=== PATIENT | male | born 1930 | race Caucasian/White ===

== ENCOUNTER 2017-09-14 17:12 | Inpatient (IN) | payer OTHER ==
[~2017-09-14] VITALS: Ht 172.7 cm; Wt 85.7 kg
[~2017-09-14 17:12] MED LIST: APR10 PO; COL100 PO; ECO81 PO; FERL PO; GABAPENTIN100 M2 PO; IPRATROPIUM BROM3 M2 HHN; LAC PO; LEVAQUIN250 MG PO; LIPI10 PO; NOR10 PO; TENORMIN50 MG PO; TERAZOSIN HCL10 MG PO; THERAGRAN-M1 TA4 PO; THI100 PO; VITC PO; XARELTO15 M1 PO
[2017-09-14 19:34] LABS: CALCIUM 9.2 mg/dL (8.5-10.1); CARBON DIOXIDE 25.6 mmol/L (21-32); CHLORIDE SERUM 103 mmol/L (98-107); CREATININE SERUM 1.9 mg/dL (0.7-1.3); GLUCOSE SERUM 146 mg/dL (74-106); POTASSIUM SERUM 3.7 mmol/L (3.5-5.1); SODIUM SERUM 139 mmol/L (136-145)
[2017-09-14 19:39] LABS: ALBUMIN 4.5 g/dL (3.4-5.0); ALKALINE PHOSPHATASE 172 U/L (46-116); ALT/SGPT 37 U/L (16-63); AST/SGOT 54 U/L (15-37); BILIRUBIN TOTAL 0.95 mg/dL (0.20-1.00); TOTAL PROTEIN, SERUM 8.2 g/dL (6.4-8.2)
[2017-09-14 19:40] LABS: AMYLASE 1158 U/L (25-115)
[2017-09-14 20:20] LABS: BASOPHIL % 0.1 % (0-2); PLATELET COUNT 184 x10^3mcL (130-400)
[2017-09-14] MEDS ORDERED: FUROSEMIDE20 MG PO (20:26)
[2017-09-14] MEDS ORDERED: PROBIOTIC1 EAC1 PO (20:26)
[2017-09-14] MEDS ORDERED: CASODEX50 MG PO (20:27)
[2017-09-14] MEDS ORDERED: THE MEDICINE S300 MG PO (20:27)
[2017-09-14] MEDS ORDERED: MASON NATURAL1000 IU PO (20:27)
[2017-09-14 20:28] LABS: LIPASE 30538 IU/L (73-393)
[2017-09-14 21:26] VITALS: BP 138/62
[2017-09-14 21:38] LABS: microscopic required? YES; urine erythrocyte 2+ (NEGATIVE)
[2017-09-14 21:40] LABS: CHOLESTEROL/HDL RATIO 3.5; MAGNESIUM 2.5 mg/dL (1.8-2.4); PHOSPHOROUS 2.7 mg/dL (2.5-4.9)
[2017-09-14 21:50] LABS: FREE T4 1.36 ng/dL (0.76-1.46); FREE THYROXINE INDEX 3.5 ug/dL (1.4-4.5); T4(THYROXINE) 10.1 ug/dL (4.7-13.3)
[2017-09-14 22:05] LABS: T3 TOTAL 1.1 ng/mL
[2017-09-15 05:39] VITALS: BP 140/61
[2017-09-15 07:01] LABS: BASOPHIL % 0.3 % (0-2); PLATELET COUNT 157 x10^3mcL (130-400); RED CELL DISTRIBUTION WIDTH 13.7 % (11.5-14.5)
[2017-09-15 07:10] LABS: CALCIUM 8.4 mg/dL (8.5-10.1); CARBON DIOXIDE 26.4 mmol/L (21-32); CHLORIDE SERUM 107 mmol/L (98-107); CREATININE SERUM 1.7 mg/dL (0.7-1.3); GLUCOSE SERUM 98 mg/dL (74-106); MAGNESIUM 2.5 mg/dL (1.8-2.4); POTASSIUM SERUM 3.6 mmol/L (3.5-5.1); SODIUM SERUM 144 mmol/L (136-145)
[2017-09-15 09:16] VITALS: BP 124/61
[2017-09-15 14:25] VITALS: BP 138/62
[2017-09-15 18:44] VITALS: BP 132/55
[2017-09-15 21:40] VITALS: BP 156/60
[2017-09-16 04:30] VITALS: BP 115/60
[2017-09-16 06:04] LABS: BASOPHIL % 0.4 % (0-2); PLATELET COUNT 143 x10^3mcL (130-400); RED CELL DISTRIBUTION WIDTH 13.9 % (11.5-14.5)
[2017-09-16 06:35] LABS: ALKALINE PHOSPHATASE 117 U/L (46-116); ALT/SGPT 41 U/L (16-63); AST/SGOT 31 U/L (15-37); BILIRUBIN TOTAL 1.1 mg/dL (0.20-1.00); CALCIUM 8.2 mg/dL (8.5-10.1); CARBON DIOXIDE 25.1 mmol/L (21-32); CHLORIDE SERUM 108 mmol/L (98-107); GLUCOSE SERUM 107 mg/dL (74-106); MAGNESIUM 2.3 mg/dL (1.8-2.4); POTASSIUM SERUM 3.4 mmol/L (3.5-5.1); SODIUM SERUM 144 mmol/L (136-145); TOTAL PROTEIN, SERUM 6.5 g/dL (6.4-8.2)
[2017-09-16 06:42] LABS: ALBUMIN 3.2 g/dL (3.4-5.0)
[2017-09-16 09:07] VITALS: BP 135/72
[2017-09-16 11:22] VITALS: BP 118/54
[2017-09-16 12:53] VITALS: Ht 172.7 cm; Wt 85.7 kg
[2017-09-16 16:15] VITALS: BP 128/60
[2017-09-16 22:06] VITALS: BP 127/60
[2017-09-17 05:32] VITALS: BP 124/63
[2017-09-17 06:52] LABS: BASOPHIL % 0.2 % (0-2); PLATELET COUNT 142 x10^3mcL (130-400); RED CELL DISTRIBUTION WIDTH 13.9 % (11.5-14.5)
[2017-09-17 06:57] LABS: AMYLASE 67 U/L (25-115); CALCIUM 7.8 mg/dL (8.5-10.1); CARBON DIOXIDE 25.2 mmol/L (21-32); CHLORIDE SERUM 107 mmol/L (98-107); CREATININE SERUM 2.1 mg/dL (0.7-1.3); GLUCOSE SERUM 113 mg/dL (74-106); POTASSIUM SERUM 3.8 mmol/L (3.5-5.1); SODIUM SERUM 143 mmol/L (136-145)
[2017-09-17 09:19] VITALS: BP 131/63
[2017-09-17 17:07] VITALS: BP 120/88
[2017-09-17 21:59] VITALS: BP 133/64
[2017-09-17 23:14] VITALS: BP 139/63
[2017-09-18 05:44] VITALS: BP 116/66
[2017-09-18 08:14] LABS: BASOPHIL % 0.4 % (0-2); PLATELET COUNT 150 x10^3mcL (130-400); RED CELL DISTRIBUTION WIDTH 14.1 % (11.5-14.5)
[2017-09-18 08:27] LABS: CARBON DIOXIDE 27.5 mmol/L (21-32); CHLORIDE SERUM 110 mmol/L (98-107); GLUCOSE SERUM 97 mg/dL (74-106); MAGNESIUM 2.4 mg/dL (1.8-2.4); POTASSIUM SERUM 3.9 mmol/L (3.5-5.1); SODIUM SERUM 145 mmol/L (136-145)
[2017-09-18 09:44] VITALS: BP 129/57
[2017-09-18] MEDS ORDERED: QUALITY CHOICE80 MG PO (13:58)
[2017-09-18] MEDS ORDERED: NORCO1 TA1 PO (14:00)
[2017-09-18 17:37] VITALS: BP 136/66
[2017-09-18 21:43] VITALS: BP 146/65
[2017-09-19 04:33] VITALS: BP 124/51
[2017-09-19 09:28] VITALS: BP 145/68
[2017-09-19 13:26] VITALS: BP 145/68
== END 2017-09-19 15:12 | disposition home health service (06) | DRG 353 ==
LOC: ED 17:12 → MU 20:46 → DU 20:46 → MU 09-16 17:57
PROVIDERS: Emergency Medicine; Family Medicine; Internal Medicine Cardiovascular Disease; Surgery
PROC: 0WUF0JZ Supplement Abdominal Wall with Synthetic Substitute, Open Approach (ICD-10-PCS; principal; 2017-09-16 10:15)
DX: K42.9 Umbilical hernia without obstruction or gangrene (principal); N17.0 Acute kidney failure with tubular necrosis; K85.10 Biliary acute pancreatitis without necrosis or infection; K56.7 Ileus, unspecified; I48.2 Chronic atrial fibrillation; R31.29 Other microscopic hematuria; I10 Essential (primary) hypertension; G62.9 Polyneuropathy, unspecified; E78.5 Hyperlipidemia, unspecified; D64.9 Anemia, unspecified; I25.2 Old myocardial infarction; Z85.46 Personal history of malignant neoplasm of prostate; Z79.01 Long term (current) use of anticoagulants; Z22.322 Carrier or suspected carrier of Methicillin resistant Staphylococcus aureus; Z79.82 Long term (current) use of aspirin; Z87.891 Personal history of nicotine dependence; Z68.28 Body mass index [BMI] 28.0-28.9, adult
CPT/HCPCS: 83880; 84439; 90658; 94150; 97110-GP; 97116-GP; 97530-GP; C1781; J1170; J1644; J1885; J2405; J2543; J2704; J2710; J3010; J3490; J7030; J7120; J8999; Q0092

== ENCOUNTER 2017-09-22 09:48 | Emergency (ER) | payer OTHER ==
[~2017-09-22] VITALS: Ht 172.7 cm; Wt 83.9 kg
[~2017-09-22 09:48] MED LIST changes: +CASODEX50 MG PO; +FUROSEMIDE20 MG PO; +MASON NATURAL1000 IU PO; +NORCO1 TA1 PO; +PROBIOTIC1 EAC1 PO; +QUALITY CHOICE80 MG PO; +THE MEDICINE S300 MG PO
[2017-09-22 09:55] VITALS: Ht 172.7 cm; Wt 83.9 kg
[2017-09-22 12:04] LABS: BASOPHIL % 0.5 % (0-2); PLATELET COUNT 187 x10^3mcL (130-400); RED CELL DISTRIBUTION WIDTH 13.7 % (11.5-14.5)
[2017-09-22 12:27] LABS: CALCIUM 8.8 mg/dL (8.5-10.1); CARBON DIOXIDE 31.2 mmol/L (21-32); CHLORIDE SERUM 103 mmol/L (98-107); CREATININE SERUM 1.9 mg/dL (0.7-1.3); GLUCOSE SERUM 110 mg/dL (74-106); POTASSIUM SERUM 4.2 mmol/L (3.5-5.1); SODIUM SERUM 141 mmol/L (136-145)
[2017-09-22 12:32] LABS: ALKALINE PHOSPHATASE 89 U/L (46-116); ALT/SGPT 33 U/L (16-63); AST/SGOT 25 U/L (15-37); BILIRUBIN TOTAL 0.56 mg/dL (0.20-1.00); TOTAL PROTEIN, SERUM 6.6 g/dL (6.4-8.2)
[2017-09-22 12:33] LABS: ALBUMIN 3.2 g/dL (3.4-5.0)
[2017-09-22 13:20] VITALS: BP 128/58
== END 2017-09-22 13:20 | disposition home or self-care (01) ==
LOC: ED 09:48
PROVIDERS: Emergency Medicine
DX: G47.62 Sleep related leg cramps (principal); Z88.0 Allergy status to penicillin; I10 Essential (primary) hypertension; I48.91 Unspecified atrial fibrillation
CPT/HCPCS: 36415; J1885; J2270; Q0092

== ENCOUNTER 2017-10-10 14:26 | Inpatient (IN) | payer OTHER ==
[~2017-10-10] VITALS: Ht 172.7 cm; Wt 82.8 kg
[2017-10-10 15:42] LABS: BASOPHIL % 0.6 % (0-2); PLATELET COUNT 190 x10^3mcL (130-400); RED CELL DISTRIBUTION WIDTH 12.9 % (11.5-14.5)
[2017-10-10 15:46] LABS: CALCIUM 9.1 mg/dL (8.5-10.1); CARBON DIOXIDE 27.4 mmol/L (21-32); CHLORIDE SERUM 98 mmol/L (98-107); CREATININE SERUM 2.2 mg/dL (0.7-1.3); GLUCOSE SERUM 147 mg/dL (74-106); POTASSIUM SERUM 3.8 mmol/L (3.5-5.1); SODIUM SERUM 135 mmol/L (136-145)
[2017-10-10 15:51] LABS: ALBUMIN 3.6 g/dL (3.4-5.0); ALKALINE PHOSPHATASE 114 U/L (46-116); ALT/SGPT 15 U/L (16-63); AST/SGOT 16 U/L (15-37); BILIRUBIN TOTAL 0.7 mg/dL (0.20-1.00); TOTAL PROTEIN, SERUM 7.6 g/dL (6.4-8.2)
[2017-10-10 18:24] LABS: MAGNESIUM 2.1 mg/dL (1.8-2.4); PHOSPHOROUS 2.8 mg/dL (2.5-4.9)
[2017-10-10 18:42] VITALS: BP 101/55
[2017-10-10 21:40] VITALS: BP 126/52
[2017-10-11 06:05] VITALS: BP 103/51
[2017-10-11 06:53] LABS: BASOPHIL % 0.5 % (0-2); PLATELET COUNT 156 x10^3mcL (130-400); RED CELL DISTRIBUTION WIDTH 13.5 % (11.5-14.5)
[2017-10-11 07:06] LABS: CALCIUM 8.4 mg/dL (8.5-10.1); CHLORIDE SERUM 102 mmol/L (98-107); CREATININE SERUM 2.6 mg/dL (0.7-1.3); GLUCOSE SERUM 95 mg/dL (74-106); SODIUM SERUM 139 mmol/L (136-145)
[2017-10-11 08:32] VITALS: BP 100/50
[2017-10-11 12:44] VITALS: BP 110/54
[2017-10-11 18:10] VITALS: BP 124/61
[2017-10-11 21:28] VITALS: BP 117/59
[2017-10-11 22:32] LABS: microscopic required? YES; urine erythrocyte 3+ (NEGATIVE)
[2017-10-12 05:57] VITALS: BP 119/52
[2017-10-12 06:42] LABS: BASOPHIL % 0.3 % (0-2); PLATELET COUNT 157 x10^3mcL (130-400); RED CELL DISTRIBUTION WIDTH 12.9 % (11.5-14.5)
[2017-10-12 07:07] LABS: CALCIUM 8.5 mg/dL (8.5-10.1); CARBON DIOXIDE 26.8 mmol/L (21-32); CHLORIDE SERUM 105 mmol/L (98-107); CREATININE SERUM 2.2 mg/dL (0.7-1.3); GLUCOSE SERUM 111 mg/dL (74-106); MAGNESIUM 2.2 mg/dL (1.8-2.4); POTASSIUM SERUM 4.2 mmol/L (3.5-5.1); SODIUM SERUM 142 mmol/L (136-145)
[2017-10-12 08:05] VITALS: Ht 172.7 cm; Wt 82.8 kg
[2017-10-12 09:50] VITALS: BP 110/55
[2017-10-12 13:31] VITALS: BP 121/80
[2017-10-12 17:13] VITALS: BP 121/80; BP 124/61
[2017-10-12 17:15] VITALS: BP 124/61
== END 2017-10-12 19:20 | DRG 553 ==
LOC: ED 14:26 → DU 16:19 → EDBEDREQSVC 16:44 → EDBEDREQ 16:44 → DU 18:12
PROVIDERS: Emergency Medicine; Family Medicine
DX: M17.12 Unilateral primary osteoarthritis, left knee (principal); N17.0 Acute kidney failure with tubular necrosis; I13.0 Hypertensive heart and chronic kidney disease with heart failure and stage 1 through stage 4 chronic kidney disease, or unspecified chronic kidney disease; E87.1 Hypo-osmolality and hyponatremia; I42.0 Dilated cardiomyopathy; I50.9 Heart failure, unspecified; N18.9 Chronic kidney disease, unspecified; G62.9 Polyneuropathy, unspecified; M10.9 Gout, unspecified; M21.862 Other specified acquired deformities of left lower leg; I48.2 Chronic atrial fibrillation; I48.0 Paroxysmal atrial fibrillation; D64.9 Anemia, unspecified; Z88.0 Allergy status to penicillin; I25.2 Old myocardial infarction; Z85.46 Personal history of malignant neoplasm of prostate; Z90.49 Acquired absence of other specified parts of digestive tract
CPT/HCPCS: 83880; 97110-GP; 97116-GP; 97530-GP; J1170; J7030; Q0092; Q0162

== ENCOUNTER 2018-12-11 17:45 | Observation (INO) | payer OTHER ==
[~2018-12-11] VITALS: Ht 175.3 cm; Wt 95.3 kg
--- NOTE | 2018-12-11 18:16 | NUR ---
PT C/O SOB W/EXERTION. PT UNABLE TO AMBULATE W/OUT BECOMING SOB. PT USUALLY REQUIRES WALKER TO AMBULATE. PT ABLE TO SPEAK IN CLEAR FULL SENTENCES AT THIS TIME. SEE ED ASSESSMENT FOR NOTES. COMFORT MEASURES IMPLEMENTED. PT SITTING IN UPRIGHT POSITION. PT AWAITING MSE. WILL CONTINUE TO MONITOR.
[2018-12-11 18:44] LABS: BASOPHIL % 0.4 % (0-2); PLATELET COUNT 156 x10^3mcL (130-400); RED CELL DISTRIBUTION WIDTH 14.9 % (11.5-14.5)
[2018-12-11 18:52] LABS: CALCIUM 8.5 mg/dL (8.5-10.1); CARBON DIOXIDE 27.1 mmol/L (21-32); CHLORIDE SERUM 103 mmol/L (98-107); CREATININE SERUM 2.4 mg/dL (0.7-1.3); GLUCOSE SERUM 148 mg/dL (74-106); POTASSIUM SERUM 4.3 mmol/L (3.5-5.1); SODIUM SERUM 140 mmol/L (136-145)
[2018-12-11 18:57] LABS: ALBUMIN 3.6 g/dL (3.4-5.0); ALKALINE PHOSPHATASE 109 U/L (46-116); ALT/SGPT 21 U/L (16-63); AST/SGOT 8 U/L (15-37); BILIRUBIN TOTAL 0.32 mg/dL (0.20-1.00)
--- NOTE | 2018-12-11 19:13 | NUR ---
REPORT GIVEN TO JOSEE BURROWS TO ASSUME CARE OF PT.
--- NOTE | 2018-12-11 19:14 | NUR ---
REPORT GIVEN BY KARRI TRIPP. PT IS OBSERVED LAYING ON GURNEY WITH HOB RAISED IN NAD. BREATHING EVEN AND UNLABORED. PT A&0X4. FAMILY AT BEDSIDE. WILL CONTINUE TO MONITOR.
--- NOTE | 2018-12-11 19:51 | NUR ---
PT MEDICATED PER MD ORDERS.
--- NOTE | 2018-12-11 21:30 | NUR ---
PT OBSERVED SITTING ON GURNEY WITH HOB AT 30 DEGREES, DENYING ANY SOB. PT A&OX4, SPEAKING FULL CLEAR SENTENCES. PT IN NAD. BREATHING EVEN AND UNLABORED. FAMILY AT BEDSIDE. CM AND [address] WILL CONTINUE TO MONITOR.
[2018-12-11] MEDS ORDERED: TERAZOSIN HCL10 MG (22:15)
[2018-12-11] MEDS ORDERED: NATURAL IRON65 MG PO (22:15)
--- NOTE | 2018-12-11 22:29 | NUR ---
REPORT GIVEN TO KELLI TRIPP
--- NOTE | 2018-12-11 22:35 | NUR ---
PT TRANSFERED TO ROOM 253B VIA [facility] AT THIS TIME. PT IN NAD. BREATHING EVEN AND UNLABORED. PT A&OX4, SPEAKING FULL CLEAR SENTENCES. PT ACCOMPANIED BY RALPH TRIPP AND NIKKI LOREDO.
[2018-12-11 22:52] VITALS: BP 131/62
--- NOTE | 2018-12-11 23:08 | NUR ---
RECEIVED PT FROM ER, PT ADMIT FOR CHF, PT IS A/O X4, VERBAL RESPONSIVE, ABLE TO TELL WHAT HE NEEDS. LUNG SOUND WHEEZING MARIXA, DENY ANY SOB AT THIS MOMENT, PT IS ON 2L/MIN O2 VIA NC. PO2 96%, PT IS ON TELE 12, SB, DENY ANY CHEST PAIN OR DISCOMFORT, BOWEL SOUND PRESENT ALL 4 QUADRANTS, NO DISTENTION, NO TENDER. PEDAL PULSE PRESENT BOTH FEET, +1 EDEMA BLE. IV AT RIGHT WRIST, NO LEAKING, NO INFILTRATION. ALL ADLS ASSIST, ALL NEED MET, CALL LIGHT IN REACH, WILL CONTINUE TO MONITOR.
[2018-12-12 06:02] VITALS: BP 116/54
--- NOTE | 2018-12-12 07:55 | NUR ---
AWAKE,ALERT AND ORIENTED.DENIES ANY PAIN AT THIS TIME.CONT. 02 AT 2 L N/C ,NO ACUTE RESP. DISTRESS NOTED. REQUIRES. MOD. ASSIST. W/ ADL NEEDS.NEELAM INTERIANO ON RT. HAND.CALL LIGHT W/ IN REACH. WILL CONT. PLAN OF CARE.
[2018-12-12 08:48] VITALS: BP 129/61
[2018-12-12 11:59] VITALS: BP 131/58
--- NOTE | 2018-12-12 15:34 | NUR ---
PT. ABLE TO AMBULATE IN THE BATHROOM W/ ASSIST. AND VOIDING WELL. DENIES ANY PAIN AT THIS TIME. CALL [facility] W/ IN REACH. NO ACUTE DISTRESS NOTED.
[2018-12-12 16:39] VITALS: BP 123/62
--- NOTE | 2018-12-12 19:29 | NUR ---
CARE ASSUMED FROM OUTGOING RN. PT RESTING COMFORTABLY IN BED. NO ACUTE DISTRESS NOTED. EVEN AND UNLABORED RESPIRATIONS ON 2LNC. DENIES ANY PAIN AT THIS TIME. ON TELE # 12 READING SR 64. BED IN LOWEST POSITION. SIDE RAILS UP X2. CALL LIGHT WITHIN REACH. WILL CONTINUE TO MONITOR.
[2018-12-12 21:18] VITALS: BP 144/57
--- NOTE | 2018-12-13 00:30 | NUR ---
PT ASLEEP COMFORTABLY IN BED. NO ACUTE DISTRESS NOTED. EVEN AND UNLABORED BREATHING ON 2LNC. ON TELE#12 READING SB 49. BED IN LOWEST POSITION. CALL LIGHT WITHIN REACH. WILL CONTINUE TO MONITOR.
[2018-12-13 05:15] VITALS: BP 124/55
--- NOTE | 2018-12-13 06:15 | NUR ---
PT SLEPT COMFORTABLY AND PERIODICALLY THROUGHOUT THE NIGHT. NO ACUTE DISTRESS NOTED. EVEN AND UNLABORED RESPIRATIONS NOTED ON 2LNC. ON TELE #12 READING SB 46 WITH 1AVB. IVL PATENT AND INTACT. ALL NEEDS TENDED TO AND MET. TOLERATED PO MEDS. NO C/O PAIN THROUGHOUT THE SHIFT. DAILY WT TAKEN: 210.1 LBS. BED IN LOWEST POSITION. SIDE RAILS UP X2. CALL LIGHT WITHIN REACH. WILL ENDORSE TO ONCOMING SHIFT.
--- NOTE | 2018-12-13 08:04 | NUR ---
AWAKE,ALERT AND ORIENTED DENIES ANY PAIN AT THIS TIME. CALL LIGHT W/ IN REACH. ABLE TO AMBULATE IN [facility] BATHROOM W/ ASSIST. WILL CONT. PLAN OF CARE.
[2018-12-13 08:12] VITALS: BP 147/96
[2018-12-13 08:15] VITALS: BP 130/63
[2018-12-13 12:16] VITALS: BP 138/67
--- NOTE | 2018-12-13 13:00 | NUR ---
DENIES ANY PAIN AT THIS TIME.NO ACUTE DISTRESS NOTED. CALL LIGHT W/ IN REACH. DR. HERNANDEZ WAS HERE AND SEEN THE PT. W/ ORDERS RECIEVED OK PT. TO GO HOME TODAY PT. MADE AWARE AND AWAITING FOR RIDE.
[2018-12-13 13:43] VITALS: BP 138/67
[2018-12-13] MEDS ORDERED: LASIX40 MG PO (13:51)
[2018-12-13] MEDS ORDERED: KLOR-CON M1010 MEQ PO (13:52)
--- NOTE | 2018-12-13 14:36 | NUR ---
PT. WENT HOME W/ STABLE CONDITION PER W/C ACC. W/ HIS DAUGHTER DISCHARGED INSTRUCTIONS AND PRESCRIPTION GIVEN AND DISCUSSED TO PT. AND VERBALIZED UNDERSTANDING OF INSTRUCTIONS GIVEN NO ACUTE DISTRESS NOTED.ESCORTED BY ROSS IN THE LOBBY.
== END 2018-12-13 14:37 | disposition home or self-care (01) | DRG 291 ==
LOC: ED 17:45 → DU 21:30
PROVIDERS: Emergency Medicine; ADMIT Internal Medicine Pulmonary Disease
DX: I13.0 Hypertensive heart and chronic kidney disease with heart failure and stage 1 through stage 4 chronic kidney disease, or unspecified chronic kidney disease (principal); I50.33 Acute on chronic diastolic (congestive) heart failure; N18.3 Chronic kidney disease, stage 3 (moderate); I48.2 Chronic atrial fibrillation; I25.2 Old myocardial infarction
CPT/HCPCS: 83880; G0378; J1940; Q0092

== ENCOUNTER 2018-12-29 14:17 | Emergency (ER) | payer OTHER ==
[~2018-12-29] VITALS: Ht 175.3 cm; Wt 83.9 kg
[~2018-12-29 14:17] MED LIST changes: +KLOR-CON M1010 MEQ PO; +LASIX40 MG PO; +NATURAL IRON65 MG PO; +TERAZOSIN HCL10 MG
[2018-12-29 15:02] VITALS: Ht 175.3 cm; Wt 83.9 kg
[2018-12-29 17:30] LABS: BASOPHIL % 0.3 % (0-2); PLATELET COUNT 184 x10^3mcL (130-400); RED CELL DISTRIBUTION WIDTH 14.2 % (11.5-14.5)
[2018-12-29 17:36] LABS: CARBON DIOXIDE 24.2 mmol/L (21-32); CHLORIDE SERUM 98 mmol/L (98-107); CREATININE SERUM 1.8 mg/dL (0.7-1.3); GLUCOSE SERUM 121 mg/dL (74-106); POTASSIUM SERUM 3.7 mmol/L (3.5-5.1); SODIUM SERUM 135 mmol/L (136-145)
[2018-12-29 17:41] LABS: ALBUMIN 3.5 g/dL (3.4-5.0); ALKALINE PHOSPHATASE 86 U/L (46-116); ALT/SGPT 22 U/L (16-63); AST/SGOT 11 U/L (15-37); BILIRUBIN TOTAL 0.58 mg/dL (0.20-1.00); TOTAL PROTEIN, SERUM 7.3 g/dL (6.4-8.2)
[2018-12-29 19:09] VITALS: BP 125/69
== END 2018-12-29 19:41 | disposition home or self-care (01) ==
LOC: ED 14:17
PROVIDERS: Emergency Medicine
DX: S82.091A Other fracture of right patella, initial encounter for closed fracture (principal); M19.021 Primary osteoarthritis, right elbow; Z88.0 Allergy status to penicillin; Z98.890 Other specified postprocedural states; X58.XXXA Exposure to other specified factors, initial encounter; Y93.89 Activity, other specified; Y92.89 Other specified places as the place of occurrence of the external cause; Y99.8 Other external cause status
CPT/HCPCS: 36415; J1885; J2270

== ENCOUNTER 2019-05-10 11:08 | Emergency (ER) | payer OTHER ==
[~2019-05-10] VITALS: Ht 172.7 cm; Wt 83.9 kg
[2019-05-10 11:22] VITALS: Ht 172.7 cm; Wt 83.9 kg
[2019-05-10 12:43] VITALS: BP 154/59
== END 2019-05-10 12:43 | disposition home or self-care (01) ==
LOC: ED 11:08
DX: M54.32 Sciatica, left side (principal); M13.841 Other specified arthritis, right hand; I11.0 Hypertensive heart disease with heart failure; I50.9 Heart failure, unspecified; I48.91 Unspecified atrial fibrillation; Z98.890 Other specified postprocedural states; Z88.0 Allergy status to penicillin

== ENCOUNTER 2019-06-04 13:46 | Emergency (ER) | payer OTHER ==
[~2019-06-04] VITALS: Ht 172.7 cm; Wt 83.9 kg
[2019-06-04 13:51] VITALS: Ht 172.7 cm; Wt 83.9 kg
[2019-06-04 14:58] LABS: BASOPHIL % 0.4 % (0-2); PLATELET COUNT 169 x10^3mcL (130-400)
[2019-06-04 15:07] LABS: CALCIUM 8.2 mg/dL (8.5-10.1); CARBON DIOXIDE 26.2 mmol/L (21-32); CHLORIDE SERUM 103 mmol/L (98-107); CREATININE SERUM 1.8 mg/dL (0.7-1.3); GLUCOSE SERUM 111 mg/dL (74-106); POTASSIUM SERUM 4.1 mmol/L (3.5-5.1); SODIUM SERUM 139 mmol/L (136-145)
[2019-06-04 15:12] LABS: ALBUMIN 3.5 g/dL (3.4-5.0); ALKALINE PHOSPHATASE 121 U/L (46-116); ALT/SGPT 18 U/L (16-63); AST/SGOT 19 U/L (15-37); BILIRUBIN TOTAL 0.6 mg/dL (0.20-1.00); TOTAL PROTEIN, SERUM 7.3 g/dL (6.4-8.2); URIC ACID 8.6 mg/dL (3.5-7.2)
[2019-06-04 17:39] VITALS: BP 139/70
== END 2019-06-04 17:40 | disposition home or self-care (01) ==
LOC: ED 13:46
PROVIDERS: Emergency Medicine
DX: M54.12 Radiculopathy, cervical region (principal); M10.062 Idiopathic gout, left knee
CPT/HCPCS: J2270; J2405; Q0092